=== PATIENT | male | born 1965 | race Caucasian/White ===

== ENCOUNTER → 2016-12-17 | Outpatient (CLI) | payer MEDICARE, OTHER ==
[~2016-12-17] MED LIST: ASPIRIN500 MG PO; KLONOPIN1 MG PO; [UNRECOGNIZED DRUG - OTHER] IM
== END | disposition home or self-care (01) ==
LOC: ORTHO 02:59
DX: M19.041 Primary osteoarthritis, right hand (principal); R22.31 Localized swelling, mass and lump, right upper limb

== ENCOUNTER 2017-04-13 07:06 | Emergency (ER) | payer MEDICARE, OTHER ==
[~2017-04-13] VITALS: Ht 185.4 cm; Wt 104.3 kg
[2017-04-13 08:01] LABS: BILIRUBIN NEGATIVE (NEGATIVE); BLOOD 3+ (NEGATIVE); CLARITY SL CLOUDY (CLEAR); COLOR YELLOW (YELLOW); GLUCOSE NEGATIVE (NEGATIVE); KETONE TRACE (NEGATIVE); LEUKO ESTERASE NEGATIVE (NEGATIVE); NITRITE NEGATIVE (NEGATIVE); PH 5.5 (5.0-9.0); UROBILINOGEN 0.2 E.U./dl (0.2-1.0)
[2017-04-13 08:08] LABS: BASO % 0.4 % (0.0-1.0); EOS # 0.1 10*3/uL (0.0-0.4); EOS % 0.7 % (1.0-4.0); HEMATOCRIT 50.6 % (42.0-52.0); HEMOGLOBIN 18.1 g/dl (14.0-18.0); LYMPH # 0.9 10*3/uL (1.3-4.4); LYMPH % 8.7 % (27.0-41.0); MEAN CELL VOLUME 92.5 fl (80.0-94.0); MEAN CORPUSCULAR HGB 33.1 pg (27.0-31.0); MEAN CORPUSCULAR HGB CONC 35.8 g/dl (33.0-37.0); MEAN PLATELET VOLUME 10.1 fl (9.6-12.3); MONO # 0.8 10*3/uL (0.1-1.0); MONO % 7.3 % (3.0-9.0); NEUT # 8.9 10*3/uL (2.3-7.9); NEUT % 82.7 % (47.0-73.0); PLATELET COUNT AUTOMATED 190 10*3/uL (130-400); RED BLOOD COUNT 5.47 10*6/uL (4.50-5.90); RED CELL DISTRI WIDTH 11.9 % (0-14.5); WHITE BLOOD COUNT 10.8 10*3/uL (4.8-10.8)
[2017-04-13 08:17] LABS: BACTERIA 1+; RBC TNTC rbc/hpf (0-2)
[2017-04-13 08:22] LABS: ALBUMIN 4.3 gm/dl (3.1-4.5); CREATININE 1.77 mg/dL (0.70-1.30); POTASSIUM 4.2 mmol/L (3.5-5.1); TOTAL PROTEIN 7.7 gm/dL (6.4-8.2)
[2017-04-13] MEDS ORDERED: ZOFRAN ODT4 MG SL (09:49)
[2017-04-13] MEDS ORDERED: FLOMAX0.4 MG PO (09:49)
== END 2017-04-13 10:00 | disposition home or self-care (01) ==
LOC: ED 07:06
PROVIDERS: Emergency Medicine
DX: N20.1 Calculus of ureter (principal); Z88.1 Allergy status to other antibiotic agents; Z79.82 Long term (current) use of aspirin; Z79.899 Other long term (current) drug therapy; Z87.442 Personal history of urinary calculi; Z90.49 Acquired absence of other specified parts of digestive tract

== ENCOUNTER → 2017-07-18 | Day surgery (SDC) | payer MEDICARE, OTHER ==
[~2017-07-18] VITALS: Ht 182.8 cm; Wt 106.6 kg
[2017-07-18] VITALS (9 sets, daily range): BP systolic 142–173; BP diastolic 84–98
[~2017-07-18] MED LIST changes: +AMLODIPINE BESY10 MG PO; +ASPIRIN FOR CHI81 MG PO; -ASPIRIN500 MG PO; +FLOMAX0.4 MG PO; +TESTOSTERO100 MG/1 M IM; +ZOFRAN ODT4 MG SL; -[UNRECOGNIZED DRUG - OTHER] IM
== END ==
LOC: SDC 07-14 09:30
DX: L72.0 Epidermal cyst (principal); I10 Essential (primary) hypertension; F41.9 Anxiety disorder, unspecified; F32.9 Major depressive disorder, single episode, unspecified

== ENCOUNTER → 2018-01-26 | Outpatient (CLI) | payer MEDICARE, OTHER ==
[~2018-01-26] MED LIST changes: +ANASTROZOLE1 M1 PO; +IBUPROFEN600 MG PO; +SILDENAFIL20 M1 PO; +TYLENOL325 M1 PO; +Zofran4 MG SL
== END | disposition home or self-care (01) ==
LOC: ORTHO 05:03
DX: M25.562 Pain in left knee (principal); M25.462 Effusion, left knee

== ENCOUNTER → 2018-02-03 | Outpatient (CLI) | payer MEDICARE, OTHER | END | disposition home or self-care (01) | LOC: MRI 02:51 | DX: M84.359A Stress fracture, hip, unspecified, initial encounter for fracture (principal); X58.XXXA Exposure to other specified factors, initial encounter; Y93.89 Activity, other specified; Y92.89 Other specified places as the place of occurrence of the external cause; Y99.8 Other external cause status ==

== ENCOUNTER → 2018-02-23 | Day surgery (SDC) | payer MEDICARE, OTHER ==
[~2018-02-23] VITALS: Ht 185.4 cm; Wt 102.5 kg
--- NOTE | ~2018-02-23 | O ---
[place], [place] OPERATIVE NOTE NAME: ZAINAB LOZANO [facility] [id number] UNIT #: [id number] ROOM: DOCTOR: ADRIAN ALONZO DO BIRTHDATE: [birth year] DOS: 02/23/2018 PREOPERATIVE DIAGNOSIS: Left prepatellar bursa or mass. POSTOPERATIVE DIAGNOSIS: Left prepatellar bursa or mass. OPERATIVE PROCEDURE: Left prepatellar bursa or mass excision. SURGEON: Adrian Alonzo DO MOTOR GRADER OPERATOR: Jaleel, student physician pathology assistant. ANESTHESIA: Agrawal, Local MAC. INDICATIONS: The patient is a 53-year-old male who states that he has had a firm swelling in the front of his knee for the past 6-8 months. The patient had drained it many times himself and it recurred. He had it aspirated in my office and the mass recurred. There was a thick tissue remaining after the aspiration. Cultures were negative. The area was painful. The patient was brought to the operative suite after the left knee had been marked in the holding area. The timeout was performed. A monitored anesthetic was performed by the nurse waiter/waitress cabin class. The left lower extremity was prepped and draped in the usual orthopedic fashion. A tourniquet was applied at the left upper thigh, but not inflated. The area about the prepatellar bursa was injected with Marcaine 0.5% with epinephrine. When the local was adequate, a 3 cm incision was made over the enlarged prepatellar bursa. Subcutaneous tissue was spread down to the level of a white glistening capsule. The capsule was meticulously dissected down to the patellar tendon, paratenon region. The patella tendon was not involved or violated. As the mass was excised, the capsule was ruptured and an donita, clear fluid was noted to leak from the capsule. A specimen was taken for Gram stain culture and sensitivity. The capsule was then excised in its entirety and sent to the lab for further study. The area was copiously irrigated with normal saline. The wound was closed in a layered fashion with 2-0 Vicryl and 3-0 Prolene on the skin. A 4-inch piece of one-quarter inch iodoform packing was tucked into the incision at the deepest level. The wound was dressed with Xeroform, 4 x 4s, ABD, cast padding and an DELANEY. The patient was taken to the recovery room in satisfactory condition. Sponge and needle count correct. ESTIMATED BLOOD LOSS: 2-3 mL. SPECIMENS: Culture and sensitivity and bursal capsule. PREOPERATIVE ANTIBIOTIC: Ancef 2 grams IV piggyback. COMPLICATIONS: None. FINDINGS: A 2.5-3 cm fluid filled capsule at the level of the prepatellar bursa [place], [place] OPERATIVE NOTE NAME: ZAINAB LOZANO Mary UNIT #: [id number] ROOM: DOCTOR: ADRIAN ALONZO DO BIRTHDATE: [birth year] removed in its entirety. ADRIAN ALONZO DO CM:OPRECORD:OPERATIVE NOTE 1942 ADRIAN ALONZO DO 03/07/18 1249 interface
[2018-02-23 08:10] VITALS: BP 145/92
[2018-02-23 10:17] VITALS: BP 155/102
[2018-02-23 10:32] VITALS: BP 153/97
[2018-02-23 10:47] VITALS: BP 143/94
== END | disposition home or self-care (01) ==
LOC: SDC 02-16 10:15
DX: M25.862 Other specified joint disorders, left knee (principal); I10 Essential (primary) hypertension; F41.8 Other specified anxiety disorders; F43.10 Post-traumatic stress disorder, unspecified; Z88.2 Allergy status to sulfonamides; Z88.1 Allergy status to other antibiotic agents; Z91.041 Radiographic dye allergy status; Z91.013 Allergy to seafood; Z90.49 Acquired absence of other specified parts of digestive tract; Z98.52 Vasectomy status; Z98.890 Other specified postprocedural states; Z88.5 Allergy status to narcotic agent; Z82.49 Family history of ischemic heart disease and other diseases of the circulatory system

== ENCOUNTER → 2018-06-09 | Outpatient (CLI) | payer MEDICARE, OTHER ==
[~2018-06-09] MED LIST changes: +DEPO TESTOS200 MG/ML IM; +SILDENAFIL CITR50 MG PO; -SILDENAFIL20 M1 PO; -TESTOSTERO100 MG/1 M IM
== END | disposition home or self-care (01) ==
LOC: ORTHO 02:15
DX: M25.552 Pain in left hip (principal); Z96.642 Presence of left artificial hip joint

== ENCOUNTER → 2018-06-20 | Outpatient (CLI) | payer MEDICARE, OTHER | END | disposition home or self-care (01) | LOC: CARD 01:46 | DX: R07.9 Chest pain, unspecified (principal) ==

== ENCOUNTER → 2018-06-30 | Outpatient (CLI) | payer MEDICARE, OTHER ==
--- NOTE | ~2018-06-30 | ST ---
[place], [place] EXERCISE STRESS TEST REPORT NAME: ZAINAB LOZANO UNIT #: [id number] ROOM: DOCTOR: ROYA ALMANZAR MD BIRTHDATE: [birth year] DOS: 06/30/2018 TREADMILL TEST WITH CARDIOLITE The test was performed because the patient is going for hip replacement surgery and he showed frequent bigeminy on his EKG along with incomplete right bundle branch block. The patient was tested on a standard Praneeth protocol, and he exercised for a total of 9 minutes reaching 90% of the PMHR at the heart rate of 152 beats per minute. The patient did not develop any chest pains or angina symptoms. The patient's baseline EKG showed normal sinus rhythm, 71 beats per minute, normal cardiac axis, slight intraventricular conduction delay. Right bundle branch block pattern. During the exercise phase, the patient developed frequent bigeminy and some quadrigeminy reaching a peak heart rate of 152 beats per minute. No significant ST-T abnormality. The patient was injected with nuclear scan during the peak phase of exercise. IMPRESSION: 1. Normal EKG part of the treadmill test with nuclear scan except for bigeminy and quadrigeminy at 90% PMHR. 2. Nuclear scan results to be reported by Cardiology later today. Case to be discussed with Dr. Lester, the customer account administrator. ROYA ALMANZAR MD CM:STRESS:EXERCISE STRESS TEST REPORT [id number] ROYA ALMANZAR MD
--- NOTE | 2018-06-30 10:55 | NUR ---
INFORMED SIGNED CONSENT OBTAINED FOR CGXT WITH DR ALMANZAR. RESTING EKG NSR WITH INCOMPLETE RBBB AND PVC HR 71 BP 160/80 IN SUPINE POSITION, STANDING HR 86 BP 142/90. PT COMPLETED 9:00 OF A ADEN PROTOCOL WITH PT COMPLETING STAGE III AT 3.4 MPH AN DA 14% GRADE. PT REACHED A PEAK HR OF 152 WHICH REPRESENTS 90% OF PREDICTED MAXIMUM AND A PEAK BP OF 158/100. PVC'S, BIGENMY AND TRIGEMNY NOTED. PT HAD NO SYMPTOMS OR COMPLAINTS. TEST TERMINATED DUE TO FATIGUE. LAST RECOVERY HR OF 126 BP 160/80. PT IN STABLE CONDITION, AWAITING NUCLEAR IMAGES.
== END | disposition home or self-care (01) ==
LOC: CARD 01:06
DX: I08.1 Rheumatic disorders of both mitral and tricuspid valves (principal); R94.31 Abnormal electrocardiogram [ECG] [EKG]

== ENCOUNTER → 2020-10-16 | Outpatient (CLI) | payer MEDICARE, OTHER ==
[2020-10-16 11:45] LABS: BASO % 0.3 % (0.0-1.0); EOS # 0.3 10*3/uL (0.0-0.4); EOS % 4.1 % (1.0-4.0); HEMATOCRIT 51.1 % (42.0-52.0); LYMPH # 1.3 10*3/uL (1.3-4.4); MEAN CELL VOLUME 97.5 fl (80.0-94.0); MEAN CORPUSCULAR HGB 33.8 pg (27.0-31.0); MEAN CORPUSCULAR HGB CONC 34.6 g/dl (33.0-37.0); MEAN PLATELET VOLUME 10.4 fl (9.6-12.3); MONO # 0.7 10*3/uL (0.1-1.0); MONO % 11.6 % (3.0-9.0); NEUT # 3.8 10*3/uL (2.3-7.9); NEUT % 62.8 % (47.0-73.0); PLATELET COUNT AUTOMATED 191 10*3/uL (130-400); RED BLOOD COUNT 5.24 10*6/uL (4.50-5.90); RED CELL DISTRI WIDTH 12.2 % (0-14.5)
[2020-10-16 12:22] LABS: ALBUMIN 3.8 gm/dl (3.1-4.5); ALKALINE PHOSPHATASE 124 U/L (45-117); BUN 14 mg/dl (7-24); CHLORIDE 105 mmol/L (98-107); CHOLESTEROL 197 mg/dL (<200); CREATININE 1.16 mg/dL (0.70-1.30); POTASSIUM 3.9 mmol/L (3.5-5.1); SGOT/AST 32 IU/L (3-35); SGPT/ALT 60 U/L (12-78); SODIUM 140 mmol/L (136-145); TOTAL PROTEIN 7.5 gm/dL (6.4-8.2); TRIGLYCERIDES 404 mg/dl (<150)
[2020-10-16 12:28] LABS: FREE T4 0.82 ng/dl (0.76-1.46)
[2020-10-16 12:30] LABS: VITAMIN D, 25-HYDROXY 22.7 ng/mL (30-100)
== END | disposition home or self-care (01) ==
LOC: LAB 11:18
PROVIDERS: ATTEND Internal Medicine
DX: Z12.5 Encounter for screening for malignant neoplasm of prostate (principal); D52.9 Folate deficiency anemia, unspecified; D51.9 Vitamin B12 deficiency anemia, unspecified; R70.0 Elevated erythrocyte sedimentation rate; R74.8 Abnormal levels of other serum enzymes; R79.89 Other specified abnormal findings of blood chemistry; R53.81 Other malaise; E55.9 Vitamin D deficiency, unspecified; E03.9 Hypothyroidism, unspecified; E29.1 Testicular hypofunction; R79.82 Elevated C-reactive protein (CRP); Z13.0 Encounter for screening for diseases of the blood and blood-forming organs and certain disorders involving the immune mechanism; Z13.1 Encounter for screening for diabetes mellitus; Z13.21 Encounter for screening for nutritional disorder; Z13.220 Encounter for screening for lipoid disorders; Z00.01 Encounter for general adult medical examination with abnormal findings

== ENCOUNTER 2020-10-29 08:56 | Emergency (ER) | payer MEDICARE, OTHER ==
[~2020-10-29] VITALS: Wt 106.6 kg
== END 2020-10-29 11:58 | disposition home or self-care (01) ==
LOC: ED 08:56
DX: S99.912A Unspecified injury of left ankle, initial encounter (principal); S89.92XA Unspecified injury of left lower leg, initial encounter; Z88.8 Allergy status to other drugs, medicaments and biological substances; Z91.013 Allergy to seafood; Z79.899 Other long term (current) drug therapy; X58.XXXA Exposure to other specified factors, initial encounter; Y93.89 Activity, other specified; Y92.89 Other specified places as the place of occurrence of the external cause; Y99.8 Other external cause status

== ENCOUNTER → 2024-10-17 | Outpatient (CLI) | payer MEDICARE, OTHER ==
[2024-10-17 12:44] LABS: BASO % 0.2 % (0.0-1.0); EOS # 0.2 10*3/uL (0.0-0.4); EOS % 4.8 % (1.0-4.0); HEMATOCRIT 46.1 % (42.0-52.0); MEAN CELL VOLUME 87.8 fl (80.0-94.0); MEAN CORPUSCULAR HGB CONC 30.8 g/dl (33.0-37.0); MEAN PLATELET VOLUME 10.3 fl (9.6-12.3); MONO # 0.6 10*3/uL (0.1-1.0); NEUT % 59.5 % (47.0-73.0); PLATELET COUNT AUTOMATED 239 10*3/uL (130-400); RED BLOOD COUNT 5.25 10*6/uL (4.50-5.90); RED CELL DISTRI WIDTH 15.2 % (0-14.5)
== END | disposition home or self-care (01) ==
LOC: LAB 12:22
PROVIDERS: ATTEND Internal Medicine
DX: I10 Essential (primary) hypertension (principal); E29.1 Testicular hypofunction; E55.9 Vitamin D deficiency, unspecified; Z12.5 Encounter for screening for malignant neoplasm of prostate; R97.20 Elevated prostate specific antigen [PSA]